=== PATIENT | male | born 1955 | race Caucasian/White ===

== ENCOUNTER 2020-03-06 23:22 | Inpatient (IN) ==
[2020-03-07] MEDS ORDERED: Naloxone 0.4 MG/ML INJ IVP PRN (01:18)
[2020-03-07] MEDS ORDERED: *HR* Promethazine 25 MG/ML VIAL IVP PRN (01:18)
[2020-03-07] MEDS ORDERED: Acetaminophen 325 MG TABLET PO PRN (01:18)
[2020-03-07] MEDS ORDERED: *HR* Dextrose 50 % in Water (Vial) 50 ML VIAL IVP PRN (03:59)
[2020-03-07] MEDS ORDERED: D5% in Water 1,000 ML IVC PRN (03:59)
[2020-03-07] MEDS ORDERED: Dextrose Gel 15 GM/37.5 ML TUBE PO PRN ×2 (03:59)
[2020-03-07] MEDS ORDERED: Albuterol 2.5 MG/3 ML NEBULIZER IH SCH (04:00)
[2020-03-07] MEDS ORDERED: Azithromycin 500 MG in 0.9 % Sodium Chloride 250 ML IVPB SCH (04:00)
[2020-03-07] MEDS: Ipratropium 1 PUFF INHALER IH SCH ×6 (04:16→23:40)
[2020-03-07 05:48] LABS: Basophils % 0.5 %; Eosinophils # 0.1 K/mcL (0.0-0.6); Hematocrit 42.2 % (37.5-50.1); Hemoglobin 13.5 g/dL (12.9-16.9); Immature Granulocytes % 1.8 % (0-4); Lymphocytes # 1.8 K/mcL (0.6-4.6); Lymphocytes % 22.7 %; Mean Corpuscular Hemoglobin 27.6 pg (28.0-33.3); Mean Corpuscular Volume 86.3 fL (83.0-100.0); Mean Platelet Volume 10.3 fL (9.4-12.4); Monocytes # 0.6 K/mcL (0.0-1.3); Monocytes % 7.3 %; Neutrophils # 5.4 K/mcL (1.6-8.9); Platelet Count 230 K/mcL (140-400); Red Blood Count 4.89 M/mcL (4.19-5.50); Red Cell Distribution Width 15.5 % (11.5-14.5); Segmented Neutrophils % 66.7 %; White Blood Count 8.1 K/mcL (4.3-11.1)
[2020-03-07 06:08] LABS: INR 1.1
[2020-03-07 06:12] LABS: Alanine Aminotransferase 22 Units/L (7-52); Albumin 3.3 g/dL (3.5-5.7); Albumin/Globulin Ratio 1.1 (1.1-2.2); Alkaline Phosphatase 42 Units/L (34-104); Aspartate Amino Transferase 19 Units/L (13-39); BUN/Creatinine Ratio 28 (6-26); Bilirubin,Total 0.7 mg/dL (0.3-1.0); Blood Urea Nitrogen 20 mg/dL (8-23); Calcium 8.4 mg/dL (8.6-10.3); Carbon Dioxide 25 mEq/L (23-29); Chloride 103 mEq/L (98-107); Chol/HDL Ratio 3.8 (0-4.9); Cholesterol 141 mg/dL (< 200); Globulin 2.9 g/dL (2.4-3.5); Glucose 237 mg/dL (70-105); HDL Cholesterol 37 mg/dL (40-59); LDL Cholesterol,Calculated 68 mg/dL (< 100); Magnesium 1.5 mg/dL (1.6-2.6); Osmolality,Calculated 298 (280-300); Phosphorous 3.2 mg/dL (2.7-4.5); Potassium 3.1 mEq/L (3.5-5.1); Sodium 139 mEq/L (136-145); Total Protein 6.2 g/dL (6.4-8.9); Triglycerides 181 mg/dL (< 150); Troponin I < 0.03 ng/mL (< 0.04); eGFR For African Americans > 60 (> 60); eGFR For Non-African Americans > 60 (> 60)
[2020-03-07 06:22] LABS: Adenovirus Not Detected (Not Detect); Coronavirus 229E Not Detected (Not Detect); Coronavirus HKU1 Not Detected (Not Detect); Coronavirus NL63 Not Detected (Not Detect); Coronavirus OC43 Not Detected (Not Detect)
[2020-03-07 06:23] LABS: Bordetella Pertussis Not Detected (Not Detect); Chlamydophila pneumoniae Not Detected (Not Detect); Human Metapneumovirus Not Detected (Not Detect); Human Rhinovirus/Enterovirus Not Detected (Not Detect); Influenza A Subtype 2009 H1 Not Detected (Not Detect); Influenza B Not Detected (Not Detect); Mycoplasma pneumoniae Not Detected (Not Detect); Parainfluenza Virus 1 Not Detected (Not Detect); Parainfluenza Virus 2 Not Detected (Not Detect); Parainfluenza Virus 3 Not Detected (Not Detect); Parainfluenza Virus 4 Not Detected (Not Detect); Respiratory Syncytial Virus Not Detected (Not Detect)
[2020-03-07] MEDS: *HR* Heparin 5,000 UNIT/ML VIAL SQ SCH ×3 (06:29→21:32)
[2020-03-07 07:28] LABS: Estimated Average Glucose 189 mg/dl
[2020-03-07] MEDS: Insulin LISPRO 300 UNITS/3 ML VIAL SQ SCH ×3 (07:50→17:19)
[2020-03-07] MEDS ORDERED: MethylPREDNISolone 40 MG/ML VIAL IVP SCH (08:00)
[2020-03-07 08:10] LABS: Lactate Dehydrogenase 227 Units/L (140-271)
[2020-03-07 08:25] LABS: Ferritin 60 ng/mL (20-250)
[2020-03-07] MEDS ORDERED: Furosemide 40 MG/4 ML VIAL IVP ONE (09:58)
[2020-03-07 10:14] LABS: D-Dimer 746 ng/mLFEU (0-500); Fibrinogen 383 mg/dL (169-393)
[2020-03-07] MEDS ORDERED: Nitroglycerin 0.4 MG TAB.SUBL SL PRN (13:22)
[2020-03-07] MEDS: Dexamethasone 4 MG/ML VIAL IVP SCH (15:30)
[2020-03-07] MEDS ORDERED: Insulin LISPRO 300 UNITS/3 ML VIAL SQ SCH (21:00)
[2020-03-07] MEDS: lisinopriL 20 MG TABLET PO SCH (21:31)
[2020-03-07] MEDS: Ranolazine 500 MG TAB.ER.12H PO SCH (21:32)
[2020-03-07] MEDS: Metoprolol XL (24 HR) Succ 50 MG TAB.ER.24H PO SCH (21:32)
[2020-03-07] MEDS: Insulin DETEMIR 100 UNIT/ML X5UNITS SQ SCH (21:41)
[2020-03-08] MEDS: Ipratropium 1 PUFF INHALER IH SCH ×6 (03:19→23:34)
[2020-03-08 04:18] LABS: Basophils % 0.4 %; Hematocrit 42.8 % (37.5-50.1); Hemoglobin 13.7 g/dL (12.9-16.9); Immature Granulocytes % 2.2 % (0-4); Lymphocytes % 12.5 %; Mean Corpuscular Hemoglobin 27.3 pg (28.0-33.3); Mean Corpuscular Volume 85.4 fL (83.0-100.0); Mean Platelet Volume 10.3 fL (9.4-12.4); Monocytes # 0.6 K/mcL (0.0-1.3); Neutrophils # 6.2 K/mcL (1.6-8.9); Platelet Count 261 K/mcL (140-400); Red Blood Count 5.01 M/mcL (4.19-5.50); Red Cell Distribution Width 15.6 % (11.5-14.5); Segmented Neutrophils % 76.9 %
[2020-03-08 04:39] LABS: BUN/Creatinine Ratio 33 (6-26); Blood Urea Nitrogen 21 mg/dL (8-23); Calcium 8.5 mg/dL (8.6-10.3); Carbon Dioxide 23 mEq/L (23-29); Chloride 103 mEq/L (98-107); Glucose 291 mg/dL (70-105); Magnesium 2.2 mg/dL (1.6-2.6); Osmolality,Calculated 298 (280-300); Potassium 3.8 mEq/L (3.5-5.1); Sodium 137 mEq/L (136-145); eGFR For African Americans > 60 (> 60); eGFR For Non-African Americans > 60 (> 60)
[2020-03-08] MEDS: *HR* Heparin 5,000 UNIT/ML VIAL SQ SCH ×3 (05:20→20:32)
[2020-03-08] MEDS: Metoprolol XL (24 HR) Succ 50 MG TAB.ER.24H PO SCH ×2 (07:43→20:27)
[2020-03-08] MEDS: lisinopriL 20 MG TABLET PO SCH (07:43)
[2020-03-08] MEDS: Ranolazine 500 MG TAB.ER.12H PO SCH ×2 (07:43→20:27)
[2020-03-08] MEDS: Aspirin Enteric Coated 81 MG Tablet PO SCH (07:43)
[2020-03-08] MEDS: Dexamethasone 4 MG/ML VIAL IVP SCH (07:43)
[2020-03-08] MEDS: Azithromycin 250 MG TABLET PO SCH (07:43)
[2020-03-08] MEDS: amLODIPine 5 MG TABLET PO SCH (07:44)
[2020-03-08] MEDS: Insulin LISPRO 300 UNITS/3 ML VIAL SQ SCH ×3 (07:44→16:48)
[2020-03-08] MEDS ORDERED: predniSONE 20 MG TABLET PO SCH (09:00)
[2020-03-08] MEDS ORDERED: Insulin LISPRO 300 UNITS/3 ML VIAL SQ SCH (15:59)
[2020-03-08] MEDS: Insulin DETEMIR 100 UNIT/ML X5UNITS SQ SCH (20:27)
[2020-03-09] MEDS: Ipratropium 1 PUFF INHALER IH SCH ×4 (03:06→16:00)
[2020-03-09] MEDS ORDERED: *HR* Enoxaparin 40 MG/0.4 ML SYRINGE SQ SCH (06:00)
[2020-03-09] MEDS: lisinopriL 20 MG TABLET PO SCH (08:11)
[2020-03-09] MEDS: Azithromycin 250 MG TABLET PO SCH (08:11)
[2020-03-09] MEDS: Aspirin Enteric Coated 81 MG Tablet PO SCH (08:11)
[2020-03-09] MEDS: Metoprolol XL (24 HR) Succ 50 MG TAB.ER.24H PO SCH (08:11)
[2020-03-09] MEDS: amLODIPine 5 MG TABLET PO SCH (08:12)
[2020-03-09] MEDS: Dexamethasone 4 MG/ML VIAL IVP SCH (08:12)
[2020-03-09] MEDS: Ranolazine 500 MG TAB.ER.12H PO SCH (08:12)
[2020-03-09] MEDS: Insulin LISPRO 300 UNITS/3 ML VIAL SQ SCH ×2 (08:13→12:10)
[2020-03-09 12:05] VITALS: BP 167/91
== END 2020-03-09 16:05 | disposition home or self-care (01) | DRG 177 ==
LOC: 2NENU → SUATTDRO 03-07 00:59
PROVIDERS: ADMIT Student in an Organized Health Care Education/Training Program; ATTEND Family Medicine